=== PATIENT | female | born 1980 | race African-American/Black ===

== ENCOUNTER 2020-06-20 16:28 | Emergency (ER) | payer BC, OTHER ==
[~2020-06-20] VITALS: Ht 154.9 cm; Wt 160.0 kg
[2020-06-20] MEDS ORDERED: acetaminophen 325mg tablet PO STA (16:48)
[2020-06-20] MEDS ORDERED: ondansetron 4mg rapidly disintigrating tab PO ONE (16:50)
[2020-06-20] MEDS ORDERED: normal saline 1000ML IV soln IVB ONE ×2 (16:50→18:10)
[2020-06-20 17:23] LABS: BASOPHILS # (AUTO) 0.1 X10'3 (0-0.2); BASOPHILS % (AUTO) 0.4 % (0-1); EOSINOPHILS % (AUTO) 0.1 % (0-6); HEMATOCRIT 31.8 % (35.0-45.0); HEMOGLOBIN 10.1 g/dl (12.0-16.0); LYMPHOCYTES # (AUTO) 1.9 X10'3 (1.1-4.8); LYMPHOCYTES % (AUTO) 9.3 % (21-51); MEAN CORPUSCULAR HEMOGLOBIN 22.7 PG (27.0-31.0); MEAN CORPUSCULAR HGB CONC 31.6 g/dL (33.0-36.5); MEAN CORPUSCULAR VOLUME 71.7 FL (78-98); MEAN PLATELET VOLUME 7.5 FL (7.4-10.4); MONOCYTES # (AUTO) 1.3 X10'3 (0-0.9); MONOCYTES % (AUTO) 6.2 % (2-12); NEUTROPHILS # (AUTO) 17.6 X10'3 (1.8-7.7); PLATELET COUNT 397 X10'3 (140-440); RED BLOOD COUNT 4.44 X10'6 (4.20-5.60); WHITE BLOOD COUNT 20.9 X10'3 (4.5-11.0)
[2020-06-20 17:36] LABS: ALANINE AMINOTRANSFERASE 24 U/L (12-78); ALBUMIN 3.9 G/DL (3.4-5.0); ALBUMIN/GLOBULIN RATIO 0.8 (1.1-1.5); ALKALINE PHOSPHATASE 82 IU/L (46-116); ANION GAP 9 (8-16); ASPARTATE AMINO TRANSFERASE 14 U/L (10-37); BILIRUBIN,TOTAL 0.4 MG/DL (0.1-1.0); BLOOD UREA NITROGEN 9 MG/DL (7-18); BUN/CREATININE RATIO 9.3 (6.6-38.0); CALCIUM 9.4 MG/DL (8.5-10.1); CHLORIDE 99 MMOL/L (99-107); CREATININE 0.97 MG/DL (0.40-0.90); GLUCOSE 126 MG/DL (70-104); POTASSIUM 3.8 MMOL/L (3.5-5.1); SODIUM 134 MMOL/L (135-145); TOTAL CARBON DIOXIDE 25.6 MMOL/L (24-32); TOTAL PROTEIN 8.6 G/DL (6.4-8.2); eGFR 64 ML/MIN
[2020-06-20] MEDS ORDERED: LIDOcaine 1% W/epiNEPHrine 1:200,000 10ml vial IJ ONE (18:30)
[2020-06-20] MEDS ORDERED: LIDOcaine 1% w/epiNEPHrine 1:200,000 30ml vial IJ ONE (18:30)
[2020-06-20] MEDS ORDERED: clindamycin 300mg/D5W 50mL 50 ML IV STA (19:59)
[2020-06-20] MEDS ORDERED: amox tr/potassium clavulanate 875/125mg TAB PO ONE (20:10)
[2020-06-20] MEDS ORDERED: HYDROcodone/acetaminophen 10/325mg tab PO ONE (20:10)
[2020-06-20] MEDS ORDERED: NO HOME MEDS (20:49)
[2020-06-20] MEDS ORDERED: CLIN-97 PO (20:54)
[2020-06-20] MEDS ORDERED: AMOX-422 PO (20:54)
[2020-06-20] MEDS ORDERED: ONDA4TAB6 PO (20:58)
[2020-06-20 22:07] VITALS: BP 110/53
== END 2020-06-20 22:09 | disposition home or self-care (01) ==
LOC: ER 16:28
DX: N75.1 Abscess of Bartholin's gland (principal); Z20.828 Contact with and (suspected) exposure to other viral communicable diseases; F17.200 Nicotine dependence, unspecified, uncomplicated; Z79.2 Long term (current) use of antibiotics; Z79.899 Other long term (current) drug therapy
CPT/HCPCS: 36415; 56420; 71045; 80053; 83605; 84145; 85025; 87040; 93005; 96361; 96365; 99285; J7030; 96372; J3490